=== PATIENT | female | born 2000 | race African-American/Black ===

== ENCOUNTER 2021-01-15 09:04 | Emergency (ER) | payer OTHER ==
[2021-01-15 09:20] VITALS: BP 132/69
--- NOTE | 2021-01-15 10:40 | ED Physician Documentation ---
PD HPI SYNCOPE - Stated complaint Stated Complaint: LOSS OF CONSCOUSNESS - Chief complaint Chief Complaint: Neuro - History obtained from History obtained from: Patient - History of Present Illness Witnessed: Witnessed Timing - onset: Today Duration: Seconds Preceding symptoms: Vision changes, Light headed, Generalized weakness Associated symptoms: Vision changes. No: Seizure, Incontinant of urine, Incontinant of stool, Headache Contributing factors: Exertion Injury occurred: None Similar symptoms before: Has not had sx before Recently seen: Not recently seen - Additional information Additional information: Previously well 20-year-old female was doing her physical activity today in training at the [employer], doing some rowing, when she began to feel some li ghtheadedness and dizziness, like she was going to pass out. This improved and she continued to work out. When she finished her workout she felt again like she might have some near syncope. She was able to get into her car and drive home and on the way home she began to feel like she was going to pass out again. She pulled over the side of the road. She got on the telephone with someone, that person told her that she seemed to pass out 3 or 4 times and the patient has no recollection of this. She denies any seizure activity she denies any injury associated with this. She has not had any chest pain. Review of Systems Constitutional: denies: Fever Eyes: denies: Decreased vision Ears: denies: Ear pain Nose: denies: Congestion Throat: denies: Sore throat Cardiac: denies: Chest pain / pressure Respiratory: denies: Dyspnea, Cough GI: denies: Abdominal Pain, Nausea, Vomiting : denies: Dysuria, Frequency Skin: denies: Rash Musculoskeletal: denies: Neck pain, Back pain, Extremity pain Neurologic: reports: Near syncope. denies: Generalized weakness, Focal weakness, Numbness, Difficulty speaking, Headache, Head injury, LOC PD PAST MEDICAL HISTORY - Allergies Allergies/Adverse Reactions: Allergies Allergy/AdvReac Type Severity Reaction Status Date / Time No Known Drug Allergies Allergy Verified 01/15/21 09:20 PD ED PE NORMAL - Vitals Vital signs reviewed: Yes (normal ) - General General: Alert and oriented X 3, No acute distress, Well developed/nourished - HEENT HEENT: Atraumatic, PERRL, EOMI - Neck Neck: Supple, no meningeal sign, No bony TTP - Cardiac Cardiac: RRR, No murmur - Respiratory Respiratory: No respiratory distress, Clear bilaterally - Abdomen Abdomen: Normal bowel sounds, Soft, Non tender, Non distended, No organomegaly - Back Back: No CVA TTP, No spinal TTP - Derm Derm: Normal color, Warm and dry, No rash - Extremities Extremities: No deformity, No edema - Neuro Neuro: Alert and oriented X 3, global risk management director 2-12 intact, No motor deficit, No sensory deficit, Normal speech Eye Opening: Spontaneous Motor: Obeys Commands Verbal: Oriented GCS Score: 15 - Psych Psych: Normal mood, Normal affect Results - Vitals Vitals: Vital Signs - 24 hr 01/15/21 09:15 Temperature 36.3 C L Heart Rate 90 Respiratory 17 Rate Blood Pressure 132/69 H O2 Saturation 99 Oxygen O2 Source Room air - EKG (time done) 1108 Rate: Rate (enter#) (68) Rhythm: NSR Ischemia: Normal ST segments Compare to prior EKG: Old EKG unavailable Computer interpretation: Agree with computer - Labs Labs: Laboratory Tests 01/15/21 01/15/21 01/15/21 10:49 10:49 10:49 WBC 9.6 RBC 4.74 Hgb 13.2 Hct 41.2 MCV 86.9 MCH 27.8 MCHC 32.0 RDW 13.4 Plt Count 332 MPV 10.1 Neut # (Auto) 8.2 H Lymph # (Auto) 0.9 L Falls # (Auto) 0.4 Eos # (Auto) 0.0 Baso # (Auto) 0.0 Absolute Nucleated RBC 0.00 Nucleated RBC % 0.0 Sodium 138 Potassium 4.0 Chloride 102 Carbon Dioxide 25 Anion Gap 11.0 BUN 9 Creatinine 0.8 Estimated GFR (MDRD) 110 Glucose 85 Calcium 9.9 Total Bilirubin 0.7 AST 24 ALT 14 Alkaline Phosphatase 65 Troponin I High Sens 12.6 Total Protein 7.9 Albumin 4.8 Globulin 3.1 Albumin/Globulin Ratio 1.5 Lipase 28 Urine Color Urine Clarity Urine pH Ur Specific [place] Urine Protein Urine Glucose (UA) Urine Ketones Urine Occult Blood Urine Nitrite Urine Bilirubin Urine Urobilinogen Ur Leukocyte Esterase Urine RBC Urine WBC Ur Squamous Epith Cells Urine Bacteria Ur Microscopic Review Urine Culture Comments Urine HCG, Qual 01/15/21 12:49 WBC RBC Hgb Hct MCV MCH MCHC RDW Plt Count MPV Neut # (Auto) Lymph # (Auto) Falls # (Auto) Eos # (Auto) Baso # (Auto) Absolute Nucleated RBC Nucleated RBC % Sodium Potassium Chloride Carbon Dioxide Anion Gap BUN Creatinine Estimated GFR (MDRD) Glucose Calcium Total Bilirubin AST ALT Alkaline Phosphatase Troponin I High Sens Total Protein Albumin Globulin Albumin/Globulin Ratio Lipase Urine Color YELLOW Urine Clarity CLEAR Urine pH 5.0 Ur Specific [place] 1.015 Urine Protein NEGATIVE Urine Glucose (UA) NEGATIVE Urine Ketones 15 H Urine Occult Blood MODERATE H Urine Nitrite NEGATIVE Urine Bilirubin NEGATIVE Urine Urobilinogen 0.2 (NORMAL) Ur Leukocyte Esterase NEGATIVE Urine RBC 0-5 Urine WBC 0-3 Ur Squamous Epith Cells RARE Squamous Urine Bacteria Rare Ur Microscopic Review INDICATED Urine Culture Comments NOT INDICATED Urine HCG, Qual NEGATIVE - Rads (name of study) chest Radiology: Prelim report reviewed (Impression: 1. No acute cardiopulmonary abnormality.), EMP read indepedently, See rad report Procedures - IVC sono (time) 1030 Bedside IVC sono: IVC measures (cm) (1.51), Euvolemia PD MEDICAL DECISION MAKING - ED course Complexity details: reviewed results, re-evaluated patient, considered differential, d/w patient ED course: 20-year-old female with acute near syncope after physical exertion is found to be euvolemic on interrogation of the inferior vena cava she has normal blood indices normal electrolytes normal troponin normal up appearing electrocardiogram and chest x-ray. She is not does look like she is starting her menses. Departure - Departure Disposition: 01 Home, Self Care Clinical Impression: Syncope Qualifiers: Syncope type: unspecified Qualified Code(s): R55 - Syncope and collapse Condition: Stable Instructions: ED Syncope Vasovagal Follow-Up: STEPHANY Segal [Provider Group]
[2021-01-15 10:58] LABS: BASOPHILS % (AUTO) 0.4 %; EOSINOPHILS % (AUTO) 0.1 %; HCT - HEMATOCRIT 41.2 % (37.0-47.0); HGB - HEMOGLOBIN 13.2 g/dL (12.0-16.0); LYMPHOCYTES # (AUTO) 0.9 10^3/uL (1.5-3.5); LYMPHOCYTES % (AUTO) 9.4 %; MEAN CORPUSCULAR HEMOGLOBIN 27.8 pg (27.0-31.0); MEAN CORPUSCULAR VOLUME 86.9 fL (81.0-99.0); MEAN PLATELET VOLUME 10.1 fL (7.9-10.8); MONOCYTES # (AUTO) 0.4 10^3/uL (0.0-1.0); MONOCYTES % (AUTO) 4.2 %; NEUTROPHILS # (AUTO) 8.2 10^3/uL (1.5-6.6); NEUTROPHILS % (AUTO) 85.6 %; PLT - PLATELET COUNT 332 10^3/uL (130-450); RED BLOOD COUNT 4.74 10^6/uL (4.20-5.40); RED CELL DISTRIBUTION WIDTH 13.4 % (12.0-15.0); WHITE BLOOD COUNT 9.6 x10^3/uL (4.8-10.8)
--- NOTE | 2021-01-15 10:59 | XRAY Report ---
PROCEDURE: Chest 1 View X-Ray INDICATIONS: chest pain TECHNIQUE: One view of the chest was acquired. COMPARISON: None available. FINDINGS: SUPPORT DEVICES: None. LUNG/PLEURA: No focal consolidation or pulmonary edema. No pleural effusion or space-occupying pneumo thorax. MEDIASTINUM: The cardiomediastinal silhouette is within normal limits. BONES/SOFT TISSUES: No acute abnormality. IMPRESSION: 1.No acute cardiopulmonary abnormality. Reviewed by: Uche Arnold MD on 01/15/2021 10:58 AM PDT Approved by: Uche Arnold MD on 01/15/2021 10:58 AM PDT Station ID: [id number]
[2021-01-15 11:09] LABS: ALBUMIN 4.8 g/dL (3.2-5.5); ALBUMIN/GLOBULIN RATIO 1.5 (1.0-2.2); BILIRUBIN,TOTAL 0.7 mg/dL (0.2-1.0); CALCIUM 9.9 mg/dL (8.5-10.3); CREATININE 0.8 mg/dL (0.4-1.0); TOTAL PROTEIN 7.9 g/dL (6.7-8.2)
[2021-01-15 12:57] LABS: BILIRUBIN,URINE NEGATIVE (NEGATIVE); GLUCOSE, URINE (UA) NEGATIVE (NEGATIVE); KETONES,URINE (UA) 15 mg/dL (NEGATIVE); LEUKOCYTE ESTERASE, URINE NEGATIVE (NEGATIVE); NITRITE,URINE NEGATIVE (NEGATIVE); OCCULT BLOOD,URINE MODERATE (NEGATIVE); PROTEIN,URINE NEGATIVE (NEGATIVE); UROBILINOGEN,URINE 0.2 (NORMAL) E.U./dL (NORMAL)
[2021-01-15 13:00] LABS: CLARITY,URINE CLEAR (CLEAR); HCG UR QUAL NEGATIVE
[2021-01-15 13:33] LABS: RBC,URINE 0-5 /HPF (0-5); SQUAMOUS EPITHELIAL CELL,UR RARE Squamous (<= Few); WBC,URINE 0-3 /HPF (0-5)
[2021-01-15 13:34] LABS: BACTERIA,URINE Rare /HPF (None Seen)
== END 2021-01-15 15:04 | disposition home or self-care (01) ==
LOC: ED 09:04
DX: R55 Syncope and collapse (principal)
CPT/HCPCS: 36415; 80053; 81001; 81003; 81025; 83690; 84484; 85025; 87086; 93005; 99282; 99284

== ENCOUNTER 2022-01-25 13:38 | Outpatient (CLI) | payer OTHER ==
--- NOTE | 2022-01-25 16:41 | MRI Report ---
PROCEDURE: KNEE WO - LT INDICATIONS: KNEE PAIN TECHNIQUE: Noncontrast sagittal PD fast spin echo and T2 fast spin echo with fat saturation, sagittal 3-D spoile d GE with fat saturation; coronal T1 spin echo and PD fast spin echo with fat saturation, and axial P D fast spin echo with fat saturation through the knee. COMPARISON: None. FINDINGS: Image quality: Excellent. Anterior cruciate ligament: Intact. Posterior cruciate ligament: Intact. Medial collateral ligament: Intact. Lateral collateral ligament: Intact. Medial meniscus: Intact. Lateral meniscus: Intact. Medial and lateral tendons: The semimembranosus tendon insertions appear intact. Visualized portion s of the pes anserinus tendons appear normal. The popliteus tendon appears intact. Iliotibial band appears normal. Anterior structures: There is mild patella bello. The distal quadriceps tendon is intact. No patellar subluxation. No femoral trochlear dysplasia or ventral trochlear prominence. Mild soft tissue edema is seen at the superolateral aspect of Hoffa's fat pad, which can be seen in the setting of lateral f emoral condyle-patellar tendon friction syndrome. The tibial tubercle trochlear groove distance is wi thin normal limits. Bones: No acute trabecular bone injury or fracture. Medial femorotibial cartilage: Intact. Lateral femorotibial cartilage: Intact. Patellofemoral cartilage: Intact. Soft tissues: There is a physiologic amount of joint fluid. There is a trace medial popliteal cyst. The musculature surrounding the knee is normal in bulk. IMPRESSION: 1.Mild patella bello. Mild edema at the superolateral aspect of the infrapatellar fat pad can be seen in the setting of lateral femoral condyle-patellar tendon friction syndrome. 2.Cruciate and collateral ligaments are intact. No acute trabecular bone injury. No meniscal tear or focal cartilage defect. Reviewed by: Yuri Vance MD on 01/25/2022 4:39 PM PDT Approved by: Yuri Vance MD on 01/25/2022 4:39 PM PDT Station ID: [id number]
== END 2022-01-25 13:39 | disposition home or self-care (01) ==
LOC: DI 13:38
DX: M22.2X2 Patellofemoral disorders, left knee (principal)